=== PATIENT | male | born 1970 | race African-American/Black ===

== ENCOUNTER 2018-10-28 20:30 | Emergency (ER) | payer OTHER ==
[~2018-10-28] VITALS: Ht 195.6 cm; Wt 102.5 kg
--- NOTE | 2018-10-28 20:33 | ED.ADGEN ---
Adult General Chief Complaint Chief Complaint ".. I hurt my Lt. shoulder in a friendly basket ball game.. I ve had it dislocated before.. november 4 times.. Once I was able to get it back in by myself.. 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 shoulder. Distal neurovascular intact. Deltoid has sensation. Patient does appear to have anterior dislocation of left shoulder. Patient denies any other injury. Has history of prior dislocations. No history immunosuppression. Denies other health history other than hypertension which he is not taking his meds tonight. Review of Systems Review of Systems Constitutional: Denies fever or chills [] Eyes: Denies change in visual acuity, redness, or eye pain [] HENT: Denies nasal congestion or sore throat [] Respiratory: Denies cough or shortness of breath [] Cardiovascular: No additional information not addressed in HPI [] GI: Denies abdominal pain, nausea, vomiting, bloody stools or diarrhea [] : Denies dysuria or hematuria [] Musculoskeletal: Denies back pain or joint pain . Except left shoulder pain- dislocation Integument: Denies rash or skin lesions [] Neurologic: Denies headache, focal weakness or sensory changes [] Endocrine: Denies polyuria or polydipsia [] All other systems were reviewed and found to be within normal limits, except as documented in this note. Family History Family History Noncontributory Current Medications Current Medications Current Medications Medications (Trade) Dose Ordered Sig/Graciela Start Time Stop Time Status Last Admin Dose Admin Morphine Sulfate (Morphine 10mg Syringe) 10 mg 1X ONCE 10/28/18 20:45 10/28/18 22:58 DC 10/28/18 21:04 10 MG Allergies Allergies Allergies Coded Allergies Type Severity Reaction Last Updated Verified No Known Drug Allergies 10/28/18 No Physical Exam Physical Exam Constitutional: Well developed, well nourished, in acute distress, non-toxic appearance. [] HENT: Normocephalic, atraumatic, bilateral external ears normal, oropharynx moist, no oral exudates, nose normal. [] Eyes: PERRLA, EOMI, conjunctiva normal, no discharge. [] Neck: Normal range of motion, no tenderness, supple, no stridor. [] Cardiovascular:Heart rate regular rhythm, no murmur [] Lungs & Thorax: Bilateral breath sounds equal apex on auscultation [] Abdomen: Bowel sounds normal, soft, no tenderness, no masses, no pulsatile masses. [] Skin: Warm, dry, no erythema, no rash. [] Multiple tattoos Back: No tenderness, no CVA tenderness. [] Extremities: No tenderness, no cyanosis, no clubbing, ROM intact, no edema. [] Except left shoulder as per history of present illness Neurologic: Alert and oriented X 3, normal motor function, normal sensory function, no focal deficits noted. [] Psychologic: Affect anxious, judgement normal, mood normal. [] Current Patient Data Vital Signs Vital Signs Date Time Temp Pulse Resp B/P (MAP) Pulse Ox O2 Delivery O2 Flow Rate FiO2 10/28/18 23:02 76 16 198/118 (144) 100 Room Air 10/28/18 20:38 99.3 EKG EKG [] Radiology/Procedures Radiology/Procedures My interpretation of chest x-ray and left shoulder shows no acute cardio pulmonary findings. Left shoulder shows reduction. ( Note pt. states in positioning for X-ray , he felt it reduce.)[] Course & Med Decision Making Course & Med Decision Making Pertinent Labs and Imaging studies reviewed. (See chart for details) Distal neurovascular intact post sling and swath. Patient to wear sling and swath. (Shoulder immobilizer). Ice packs as needed. Take Tylenol and ibuprofen for pain. Follow-up primary care. Return if any concerns. He was advised to take his hypertensive meds. on discharge. Patient denies any santiago eventual surgery to stabilize shoulder. [] Final Impression Final Impression 1. Lt. shoulder injury[]-dislocation 2. Hypertension Dragon Disclaimer Dragon Disclaimer This electronic medical record was generated, in whole or in part, using a voice recognition dictation system. Discharge Summary Visit Information Final Diagnosis Problems Medical Problems: (1) Shoulder dislocation Status: Acute (2) Shoulder dislocation, recurrent Status: Acute Brief Hospital Course Allergies Allergies Coded Allergies Type Severity Reaction Last Updated Verified No Known Drug Allergies 10/28/18 No Vital Signs Vital Signs Date Time Temp Pulse Resp B/P (MAP) Pulse Ox O2 Delivery O2 Flow Rate FiO2 10/28/18 23:02 76 16 198/118 (144) 100 Room Air 10/28/18 20:38 99.3 Brief Hospital Course Mr. Nolasco is a 47 old male who presented with Lt. shoulder dislocation- reduced during x-rays. HTN Discharge Information Condition at Discharge: Improved, Stable Disposition/Orders: D/C to Home Dischare Medications Current Medications Morphine Sulfate (Morphine 10mg Syringe) 10 mg 1X ONCE SQ Last administered on 10/28/18at 21:04; Admin Dose 10 MG; Start 10/28/18 at 20:45; Stop 10/28/18 at 22:58; Status DC Discharge Summary Visit Information Final Diagnosis Problems Medical Problems: (1) Shoulder dislocation Status: Acute (2) Shoulder dislocation, recurrent Status: Acute Brief Hospital Course Allergies Allergies Coded Allergies Type Severity Reaction Last Updated Verified No Known Drug Allergies 10/28/18 No Vital Signs Vital Signs Date Time Temp Pulse Resp B/P (MAP) Pulse Ox O2 Delivery O2 Flow Rate FiO2 10/28/18 23:02 76 16 198/118 (144) 100 Room Air 10/28/18 20:38 99.3 Brief Hospital Course Mr. Nolasco is a 47 old male [employer] who presented with Lt shoulder dislocation. ( Reduced during X-rays) Discharge Information Condition at Discharge: Improved, Stable Disposition/Orders: D/C to Home Dischare Medications Current Medications Morphine Sulfate (Morphine 10mg Syringe) 10 mg 1X ONCE SQ Last administered on 10/28/18at 21:04; Admin Dose 10 MG; Start 10/28/18 at 20:45; Stop 10/28/18 at 22:58; Status DC Dragon Disclaimer This chart was dictated in whole or in part using Voice Recognition software in a busy, high-work load, and often noisy Emergency Department environment. It may contain unintended and wholly unrecognized errors or omissions. Dragon Disclaimer This chart was dictated in whole or in part using Voice Recognition software in a busy, high-work load, and often noisy Emergency Department environment. It may contain unintended and wholly unrecognized errors or omissions. JOHN CALDWELL MD Oct 28, 2018 20:33
[2018-10-28] MEDS ORDERED: MORPHINE SULFATE 10 MG/ML SYRINGE. SQ ONE (20:45)
[2018-10-28 23:02] VITALS: BP 198/118
--- NOTE | 2018-10-29 07:57 | RAD ---
Examination: PORTABLE CHEST 1V History: LEFT SHOULDER INJURY, PAIN IN LEFT UPPER CHEST AND SHOULDER
LEANING TO LEFT AND UNABLE TO STAND UP TALL AND STRAIGHT Comparison/Correlation: None Findings: Frontal views of the chest were obtained. Heart size and pulmonary vasculature are normal. No infiltrate or pleural effusion. Opacity lateral to the aortic arch is noted likely related to the left first costochondral junction. Bony structures are intact. No pneumothorax. Dextroconvexity thoracic spine noted. Impression: No acute process. Follow-up two-view chest x-ray exam in the interval recommended for more complete assessment of the left upper lung field. Electronically signed by: Dustin Beavers MD (10/29/2018 7:54 AM) [facility]
--- NOTE | 2018-10-29 09:29 | RAD ---
SHOULDER 2+V LEFT History: SHOULDER INJURY, PAIN, UNABLE TO MOVE ARM. No evidence of an acute fracture. No aggressive bone destruction. Joint spaces and alignment are intact. Small subcortical density of the superior humeral head on the more internally rotated view probably overlapping bone. IMPRESSION: No acute fracture or dislocation. Small subcortical density of the humeral head may be normal overlapping bone, but depending on clinical concern, MRI of left shoulder could further evaluate. Electronically signed by: Eric Macdonald MD (10/29/2018 9:26 AM) [id number]
== END 2018-10-28 23:02 | disposition home or self-care (01) ==
LOC: ER 20:30 → EEVIPCON 20:30 → ER 23:02
DX: M24.412 Recurrent dislocation, left shoulder (principal); I10 Essential (primary) hypertension; X58.XXXA Exposure to other specified factors, initial encounter; Y93.67 Activity, basketball; Y92.89 Other specified places as the place of occurrence of the external cause; Y99.8 Other external cause status
CPT/HCPCS: 23650; 71045; 73030; 96372; 99284; J2270